=== PATIENT | female | born 1960 | race Caucasian/White ===

== ENCOUNTER 2018-05-14 18:39 | Emergency (ER) | payer OTHER, MEDICARE ==
[~2018-05-14] VITALS: Ht 167.6 cm; Wt 70.3 kg
[~2018-05-14 18:39] MED LIST: ADVIL200 MG PO; ALPRAZOLAM2 MG PO; CLARITIN10 MG PO; ENDOCET 325 MG-1 TA1 PO; FENTANYL1 EAC2 TOP; GABAPENTIN600 M1 PO; HYDROCODONE/ACE1 TA1 PO; MOTRIN800 MG PO; MULTIVITAMIN1 TAB PO; NORCO 325 MG-51 TAB PO; PAXIL30 M1 PO; PERCOCET 10-321 EACH PO; PERCOCET 325 MG1 TAB PO; TRAMADOL50 MG PO; XANAX1 M1 PO; XANAX2 M1 PO; ZOFRAN 4 MG TABL4 MG PO
[2018-05-14 19:25] VITALS: BP 130/83
--- NOTE | 2018-05-14 20:33 | RADIOLOGY REPORT ---
EXAMINATION: XR KNEE, LEFT CLINICAL INFORMATION: Fell down the stairs. COMPARISON: None TECHNIQUE: Four views of the left knee. FINDINGS: There is no fracture. There is no dislocation. There is no joint effusion. There is mild joint narrowing of the femoral tibial joint with minimal spurring of the femur and tibia at the medial femoral tibial joint. There is minimal spur at the inferior patella at the patellofemoral joint. IMPRESSION: No acute abnormality of the knee.
--- NOTE | 2018-05-14 20:35 | RADIOLOGY REPORT ---
EXAMINATION: XR SHOULDER, LEFT CLINICAL INFORMATION: Fall down the stairs COMPARISON: None TECHNIQUE: Three views of the left shoulder. FINDINGS: The bones and soft tissues are normal. No fracture. Glenohumeral and acromioclavicular alignment is anatomic with normal joint space. No abnormal soft tissue calcifications. IMPRESSION: Normal left shoulder.
--- NOTE | 2018-05-14 21:05 | CT SCAN REPORT ---
EXAMINATION: CT LUMBAR SPINE WITHOUT CONTRAST CLINICAL INFORMATION: Fall down stairs. COMPARISON: CT lumbar spine 03/08/2014. MR lumbar spine 07/16/2017 TECHNIQUE: Axial images obtained through the lumbar spine. Coronal and sagittal reformatted images are performed at the CT scanner DLP: 1114.02 mGy-cm FINDINGS: Patient has had bilateral laminectomy at L4, L5 with transpedicular screws at L4-S1. There is bone grafting at these disc levels bilateral. There are disc spacers at L3-L4 and L4-L5. There is disc height narrowing vacuum disc phenomenon at L2-L3 with endplate spurring of the vertebrae and subchondral sclerosis of the endplates There is no acute change. There is no fracture. There is no spondylolisthesis. No focal disc herniation. The neural foramina remain patent. No paraspinal hematoma or focal fluid collections. The sacroiliac joints are normal. There is a left-sided perineural cyst at S3-S4 the left side mildly expanding the left neural foramina. There are scattered vascular calcification of the distal aorta and iliac arteries without aneurysm. The partially visualized kidneys are unremarkable. IMPRESSION: No acute abnormality. Stable postsurgical changes of lumbar spine.
== END 2018-05-14 21:59 | disposition admitted as inpatient to this hospital (09) ==
LOC: ERH 18:39
DX: M54.9 Dorsalgia, unspecified (principal); M25.562 Pain in left knee; M25.512 Pain in left shoulder; W10.9XXA Fall (on) (from) unspecified stairs and steps, initial encounter
CPT/HCPCS: 73030-LT; 73562-LT; 99281